=== PATIENT | female | born 1990 | race Caucasian/White ===

== ENCOUNTER 2023-01-08 19:47 | Emergency (ER) | payer OTHER, SELFPAY ==
--- NOTE | ~2023-01-08 | XR_ITS ---
EXAMINATION: XR CHEST CLINICAL INFORMATION: Fall, chest trauma. COMPARISON: None available. TECHNIQUE: 2 views of the chest were obtained. FINDINGS: No significant abnormality is noted involving the heart, lungs, mediastinum, bony thorax or soft tissues. XR/XR chest 2V IMPRESSION: Unremarkable examination.
--- NOTE | ~2023-01-08 | XR_ITS ---
EXAMINATION: XR WRIST, LEFT XR HAND, LEFT CLINICAL INFORMATION: Wrist pain, fall. COMPARISON: None available. TECHNIQUE: Four views of the left wrist and left hand FINDINGS: No acute fractures or malalignment. Carpal rows are maintained. No unexpected radiopaque foreign bodies. XR/XR hand wrist LT IMPRESSION: No acute fractures or malalignment.
--- NOTE | ~2023-01-08 | XR_ITS ---
EXAMINATION: XR KNEE, LEFT CLINICAL INFORMATION: Pain. COMPARISON: None available. TECHNIQUE: Four views of the left knee. FINDINGS: No acute fractures or subluxation. Small joint effusion. No unexpected radiopaque foreign bodies. XR/XR knee LT 2V IMPRESSION: 1. No acute fractures or subluxation. 2. Small joint effusion.
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
[2023-01-08 19:53] VITALS: BP 133/85; PULSE 77; RESP 16; TEMP 35.7; O2SAT 96; BMI 28.9
--- NOTE | 2023-01-08 20:54 | PC.NURSE ---
pt ambulatory to exam room, pt has abrasions on left leg, and upper thigh, left forearm also has abrasions present. pt has on concerns that her ring and pinky finger may be broken, tetanus up to date (last rec in 2020)
[2023-01-08 22:37] VITALS: BP 105/60; PULSE 50; RESP 16; TEMP 36.6; O2SAT 99
== END 2023-01-09 01:19 | disposition home or self-care (01) ==
PROVIDERS: Emergency Provider Emergency Medicine; PCP Pediatrics
DX: S63.617A Unspecified sprain of left little finger, initial encounter (principal); S50.812A Abrasion of left forearm, initial encounter; S80.812A Abrasion, left lower leg, initial encounter; S60.512A Abrasion of left hand, initial encounter; V18.0XXA Pedal cycle driver injured in noncollision transport accident in nontraffic accident, initial encounter; M25.462 Effusion, left knee; Y93.55 Activity, bike riding; Y92.414 Local residential or business street as the place of occurrence of the external cause; Y99.9 Unspecified external cause status
CPT/HCPCS: 29130; 71046; 73110; 73130; 73560; 99283